=== PATIENT | female | born 1990 | race Caucasian/White ===

== ENCOUNTER 2017-02-13 17:59 | Emergency (ER) | payer MEDICAID ==
[2017-02-13 18:11] VITALS: BP 125/53
[2017-02-13] MEDS ORDERED: IBUPROFEN 600 MG TABLET PO ONE (19:06)
--- NOTE | 2017-02-13 19:06 | ER Document Report ---
HPI - HPI Pain Level: 2 Notes: Patient is a 26-year-old female no significant past medical history presents the ED complaining of right ear pain and an episode of a popping sensation over the last couple days. Patient states that prior to development of pain she did have nasal congestion and discharge with a dry nonproductive cough that has since resolved. She is otherwise eating and drinking without difficulties. She has not been taking any medicines for symptoms. She has not noticed any ear drainage. The pain will sometimes radiate down towards her neck. No other concerns or complaints. Patient admits to smoking but denies IV drug use. Denies any headache, fever, head injury, neck pain, URI, sore throat, chest pain , palpitations, syncope, cough, shortness of breath, wheeze, dyspnea, abdominal pain, nausea/vomiting/diarrhea, urinary retention, dysuria, hematuria, dizziness , tinnitus, or rash. - ROS Notes: REVIEW OF SYSTEMS: CONSTITUTIONAL : Denies fever, chills, or sweats. Denies recent illness. EENT: See HPI CARDIOVASCULAR: Denies chest pain. Denies palpitations or racing or irregular heart beat. Denies ankle edema. RESPIRATORY: Denies cough, cold, or chest congestion. Denies shortness of breath, difficulty breathing, or wheezing. GASTROINTESTINAL: Denies abdominal pain or distention. Denies nausea, vomiting , or diarrhea. Denies blood in vomitus, stools, or per rectum. Denies black, tarry stools. Denies constipation. GENITOURINARY: Denies difficulty urinating, painful urination, burning, frequency, blood in urine, or discharge. MUSCULOSKELETAL: Denies back or neck pain or stiffness. Denies joint pain or swelling. SKIN: Denies rash, lesions or sores. HEMATOLOGIC : Denies easy bruising or bleeding. LYMPHATIC: Denies swollen, enlarged glands. NEUROLOGICAL: Denies confusion or altered mental status. Denies passing out or loss of consciousness. Denies dizziness or lightheadedness. Denies headache. Denies weakness or paralysis or loss of use of either side. Denies problems with gait or speech. Denies sensory loss, numbness, or tingling. Denies seizures. ALL OTHER SYSTEMS REVIEWED AND NEGATIVE. Dictation was performed using [employer] voice recognition software Past Medical History - Social History Smoking Status: Current Every Day Smoker Family History: Reviewed & Not Pertinent Vertical Provider Document - CONSTITUTIONAL Agree With Documented VS: Yes Notes: PHYSICAL EXAMINATION: GENERAL: Well-appearing, well-nourished and in no acute distress. A&Ox4 HEAD: Atraumatic, normocephalic. EYES: Pupils equal round and reactive to light, extraocular movements intact, sclera anicteric, conjunctiva are normal. ENT: EAC clear b/l. TM's intact b/l without erythema, fluid, or perforation. Nares patent and without discharge. oropharynx clear without exudates. No tonsilar hypertrophy or erythema. Moist mucous membranes. No sinus tenderness. NECK: Normal range of motion, supple without lymphadenopathy. No rigidity/ meningismus. LUNGS: Breath sounds clear to auscultation bilaterally and equal. No wheezes rales or rhonchi. HEART: Regular rate and rhythm without murmurs, rubs, gallops. Extremities: No cyanosis, clubbing, or edema b/l. Peripheral pulses 2+. Capillary refill less than 3 seconds. NEUROLOGICAL: Cranial nerves grossly intact. Normal speech, normal gait. Normal sensory, motor exams PSYCH: Normal mood, normal affect. SKIN: Warm, Dry, normal turgor, no rashes or lesions noted. - INFECTION CONTROL TRAVEL OUTSIDE OF THE [place] IN LAST 30 DAYS: No - RESPIRATORY O2 Sat by Pulse Oximetry: 100 Course - Re-evaluation Re-evalutation: 02/13/17 19:03 Patient is an afebrile, well-hydrated, 26-year-old female who presents the ED with otalgia, suspect eustachian tube dysfunction based on H&P. Vitals are stable. PE is otherwise unremarkable. Low suspicion for any sepsis, meningitis , mastoiditis, perforated eardrum, severe dehydration, airway compromise, or other systemic emergent condition at this time. Patient to monitor symptoms closely and seek medical attention with any acute changes. Motrin given p.o. today. Recommend conservative measures for symptoms otherwise with Mucinex and Sudafed included. Recheck with your PCM in 3-5 days. Consider consult with ENT. Return to the ED with any worsening/concerning symptoms otherwise as reviewed discharge. Patient is in agreement. - Vital Signs Vital signs: Temp Pulse Resp BP Pulse Ox 99.1 F 110 H 18 125/53 L 100 02/13/17 18:10 02/13/17 18:10 02/13/17 18:10 02/13/17 18:10 02/13/17 18:10 Discharge - Discharge Clinical Impression: Otalgia of right ear Eustachian tube dysfunction Qualifiers: Laterality: right Qualified Code(s): H69.81 - Other specified disorders of Eustachian tube, right ear Condition: Stable Disposition: HOME, SELF-CARE Additional Instructions: Maintain adequate fluid intake Take meds as directed Keep ears clean tylenol/ibuprofen as needed over the counter cold medication as needed for symptoms--mucinex/pseudafed Nasal saline rinses Humidified air may help F/u: with your PCM in 3-5 days for a recheck Consider consult with ENT. Return to the ED with any fever, worsening pain, chest pain, palpitations, syncope, worsening ORR, neck pain/stiffness, shortness of breath, wheezing, drooling, trouble swallowing/breathing, abdominal pain, n/v/d, rash, or worsening/concerning symptoms otherwise. Forms: Smoking Cessation Education Referrals: RICK MONTOYA DO [Primary Care Provider] - Follow up in 3-5 days SOFI CORTES DO [ASSOCIATE] - Follow up as needed
== END 2017-02-13 19:51 | disposition home or self-care (01) ==
LOC: ER 17:59
DX: H69.91 Unspecified Eustachian tube disorder, right ear (principal); H92.01 Otalgia, right ear; F17.200 Nicotine dependence, unspecified, uncomplicated
CPT/HCPCS: 99282; J3490

== ENCOUNTER 2018-07-21 08:07 | Emergency (ER) | payer SELFPAY ==
[2018-07-21] MEDS ORDERED: IBUPROFEN 800 MG TABLET PO ONE (10:02)
[2018-07-21] MEDS ORDERED: CLINDAMYCIN HCL 150 MG CAPSULE PO ONE (10:02)
--- NOTE | 2018-07-21 10:06 | ER Document Report ---
HPI - HPI Patient complains to provider of: Facial swelling Time Seen by Provider: 07/21/18 09:44 Onset/Duration: Persistent Quality of pain: Achy Pain Level: 2 Context: Patient states she has had pain to the left facial area with swelling for the past 2 days. Patient does report some congestion. Patient denies any fever. Associated Symptoms: Other - Left-sided facial pain and swelling. denies: Fever Exacerbated by: Movement Relieved by: Denies Similar symptoms previously: No Recently seen / treated by doctor: No - ROS ROS below otherwise negative: Yes Systems Reviewed and Negative: Yes All other systems reviewed and negative - CONSTITUTIONAL Constitutional: DENIES: Fever, Chills - EENT Notes: Left side facial pain and swelling - CARDIOVASCULAR Cardiovascular: DENIES: Chest pain - RESPIRATORY Respiratory: DENIES: Trouble Breathing, Coughing - GASTROINTESTINAL Gastrointestinal: DENIES: Nausea, Patient vomiting - REPRODUCTIVE Reproductive: DENIES: : - MUSCULOSKELETAL Musculoskeletal: DENIES: Extremity pain - DERM Skin Color: Normal Skin Problems: None Past Medical History - General Information source: Patient - Social History Smoking Status: Current Every Day Smoker Chew tobacco use (# tins/day): No Frequency of alcohol use: None Drug Abuse: None 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 IN LAST 30 DAYS: No - HEENT HEENT: Atraumatic, Normocephalic. negative: Pharyngeal Exudate, Pharyngeal Tenderness, Pharyngeal Erythema, Tympanic Membrane Red, Tympanic Membrane Bulging Mouth Diagram: 1 - Widespread dental decay 2 - Gingival induration worrisome for developing abscess Notes: Swelling over left maxillary facial area, widespread dental decay, no trismus, no sublingual or submental swelling - NECK Neck: Normal Inspection, Supple - RESPIRATORY Respiratory: Breath Sounds Normal, No Respiratory Distress - CARDIOVASCULAR Cardiovascular: Regular Rate, Regular Rhythm - BACK Back: Normal Inspection - MUSCULOSKELETAL/EXTREMETIES Musculoskeletal/Extremeties: MAEW - NEURO Level of Consciousness: Awake, Alert, Appropriate Motor/Sensory: No Motor Deficit - DERM Integumentary: Warm, Dry Course - Vital Signs Vital signs: Temp Pulse Resp BP Pulse Ox 99.0 F 97 18 110/58 L 97 07/21/18 08:21 07/21/18 08:21 07/21/18 08:21 07/21/18 08:21 07/21/18 08:21 Discharge - Discharge Clinical Impression: Infected dental caries Condition: Stable Disposition: HOME, SELF-CARE Instructions: Clindamycin ([facility]), Dentist, Dental Infection or Abscess ([facility]) Additional Instructions: Return immediately for any new or worsening symptoms Followup with your primary care provider, call tomorrow to make a followup appointment Prescriptions: Clindamycin HCl [Cleocin 300 mg Capsule] 300 mg PO TID #21 capsule Naproxen [Naprosyn 250 Nmg Tablet] 1 tab PO BID #14 tablet Forms: Smoking Cessation Education Referrals: [facility] [Provider Group] - Follow up as needed
[2018-07-21 10:10] VITALS: BP 126/70
== END 2018-07-21 10:17 | disposition home or self-care (01) ==
LOC: ER 08:07
DX: K04.7 Periapical abscess without sinus (principal); K02.9 Dental caries, unspecified; R22.0 Localized swelling, mass and lump, head; R09.81 Nasal congestion; F17.200 Nicotine dependence, unspecified, uncomplicated
CPT/HCPCS: 99283

== ENCOUNTER 2018-09-19 16:20 | Emergency (ER) | payer SELFPAY ==
[2018-09-19 16:30] VITALS: BP 132/59
[2018-09-19] MEDS ORDERED: DEXAMETHASONE SOD PHOS INJ 10 MG/1 ML VIAL IM ONE (17:45)
[2018-09-19] MEDS ORDERED: KETOROLAC TROMETHAMINE 60 MG/2 ML SDV IM ONE (17:45)
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
== END 2018-09-19 18:34 | disposition home or self-care (01) ==
LOC: ER 16:20
DX: S16.1XXA Strain of muscle, fascia and tendon at neck level, initial encounter (principal); S29.012A Strain of muscle and tendon of back wall of thorax, initial encounter; F17.210 Nicotine dependence, cigarettes, uncomplicated; V48.5XXA Car driver injured in noncollision transport accident in traffic accident, initial encounter
CPT/HCPCS: 99406; 99283; J1885; J1100

== ENCOUNTER 2019-07-13 15:06 | Emergency (ER) | payer OTHER ==
[2019-07-13] MEDS ORDERED: IBUPROFEN 600 MG TABLET PO ONE (15:41)
[2019-07-13] MEDS ORDERED: METHOCARBAMOL 750 MG TABLET PO ONE (15:41)
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
[2019-07-13 16:56] VITALS: BP 114/65
== END 2019-07-13 17:04 | disposition home or self-care (01) ==
LOC: ER 15:06
DX: M25.571 Pain in right ankle and joints of right foot (principal); M25.531 Pain in right wrist; M54.2 Cervicalgia; V87.7XXA Person injured in collision between other specified motor vehicles (traffic), initial encounter
CPT/HCPCS: 99283; 73610; 73110; J3490